=== PATIENT | female | born 2000 | race Caucasian/White ===

== ENCOUNTER 2022-07-20 21:01 | Emergency (ER) | payer MEDICAID ==
[~2022-07-20] VITALS: Ht 157.5 cm; Wt 70.3 kg
[2022-07-20 21:39] VITALS: BP_SYST 120
--- NOTE | 2022-07-20 21:40 | NUR ---
Patient triaged and placed in waiting room. VSS and patient appears in no acute distress at this time. Accompanied by self, awaiting available bed, and MD notified of need for MSE.
--- NOTE | 2022-07-20 22:22 | NUR ---
Wrist splint applied to R wrist. strong pulse noted. Capillary refill < 3 seconds. Patient has ability to move non-splinted digits. Has sensation present to affected site. Skin color within normal limits. Applied for pain management control.
[2022-07-20] MEDS ORDERED: IBUP-1507 PO (22:23)
[2022-07-20] MEDS ORDERED: metroNIDAZOLE 500 MG TABLET ONE (22:49)
[2022-07-20 23:55] VITALS: BP_SYST 116
--- NOTE | 2022-07-20 23:55 | NUR ---
Patient given written and verbal discharge instructions and verbalizes understanding. ER MD Coronado discussed with patient the results and treatment provided. Patient in stable condition. ID arm band removed. Rx Ibuprofen sent to pharmacy of choice. Patient educated on pain management and to follow up with PMD. Opportunity for questions provided and answered.
== END 2022-07-20 23:55 | disposition home or self-care (01) ==
LOC: SED 21:01
DX: M25.531 Pain in right wrist (principal); Z79.899 Other long term (current) drug therapy
CPT/HCPCS: 99283